=== PATIENT | female | born 1990 | race Caucasian/White ===

== ENCOUNTER 2017-12-09 21:31 | Inpatient (IN) | payer OTHER ==
[2017-12-09 22:52] LABS: APPEARANCE,URINE CLOUDY; BILIRUBIN,URINE NEGATIVE (NEGATIVE); COLOR,URINE YELLOW; GLUCOSE, URINE NEGATIVE (NEGATIVE); KETONES,URINE NEGATIVE (NEGATIVE); LEUKOCYTE ESTERASE,URINE TRACE (NEGATIVE); NITRITE,URINE NEGATIVE (NEGATIVE); PROTEIN,URINE NEGATIVE (NEGATIVE); URINE SPECIFIC GRAVITY 1.011; UROBILINOGEN,URINE NEGATIVE mg/dL (<2.0)
[2017-12-09 23:07] LABS: URINE AMPHETAMINES SCREEN NEGATIVE; URINE BARBITURATES SCREEN NEGATIVE; URINE BENZODIAZEPINES SCREEN NEGATIVE; URINE COCAINE SCREEN NEGATIVE; URINE MARIJUANA (THC) SCREEN NEGATIVE; URINE METHADONE SCREEN NEGATIVE; URINE PHENCYCLIDINE SCREEN NEGATIVE
[2017-12-09] MEDS ORDERED: RINGERS SOLUTION,LACTATED 1,000 ML IV PRN (23:16)
[2017-12-09 23:43] LABS: ABSOLUTE LYMPHOCYTES (AUTO) 2.4 10^3/uL (0.5-4.7); ABSOLUTE MONOCYTES (AUTO) 0.7 10^3/uL (0.1-1.4); ABSOLUTE NEUT (AUTO) 11.6 10^3/uL (1.7-8.2); BASOPHILS % (AUTO) 0.2 % (0-2); EOSINOPHILS % (AUTO) 0.2 % (0-6); HEMATOCRIT 33.5 % (36.0-47.0); HEMOGLOBIN 11.4 g/dL (12.0-15.5); LYMPHOCYTES % (AUTO) 16.1 % (13-45); MEAN CORPUSCULAR HEMOGLOBIN 27.8 pg (27.0-33.4); MEAN CORPUSCULAR HGB CONC 33.9 g/dL (32.0-36.0); MEAN CORPUSCULAR VOLUME 82 fl (80-97); MONOCYTES % (AUTO) 4.8 % (3-13); PLATELET COUNT 186 10^3/uL (150-450); RED BLOOD COUNT 4.09 10^6/uL (3.72-5.28); RED CELL DISTRIBUTION WIDTH 13.7 % (11.5-14.0); SEGMENTED NEUTROPHILS % (AUTO) 78.7 % (42-78); TOTAL CELLS COUNTED % (AUTO) 100 %; WHITE BLOOD COUNT 14.7 10^3/uL (4.0-10.5)
[2017-12-10] MEDS ORDERED: ACETAMINOPHEN WITH CODEINE #3 TABLET PO PRN ×2 (00:31)
[2017-12-10] MEDS ORDERED: BENZOCAINE/MENTHOL AEROSOL SPRAY 56 ML TOP PRN (00:31)
[2017-12-10] MEDS ORDERED: MEASLES,MUMPS&RUBELLA VACC/PF 0.5 ML VIAL SUBCUT PRN (00:31)
[2017-12-10] MEDS ORDERED: ZOLPIDEM TARTRATE 5 MG TABLET PO PRN (00:31)
[2017-12-10] MEDS ORDERED: DIPH/PERTUSS(ACELL)/TETANUS VAC/PF 0.5 ML SYR (>=10YO) IM PRN (00:31)
[2017-12-10] MEDS ORDERED: OXYTOCIN/NORMAL SALINE 20 UNIT/1,000 ML RTUINJ IV PRN (00:31)
[2017-12-10] MEDS ORDERED: DIBUCAINE 1% OINTMENT 28 GM TP PRN (00:31)
[2017-12-10] MEDS ORDERED: FENTANYL CITRATE INJ/PF 100 MCG/2 ML AMPUL ONE (01:32)
[2017-12-10] MEDS ORDERED: MISOPROSTOL 0.2 MG TABLET ONE (01:32)
[2017-12-10] MEDS ORDERED: OXYTOCIN/NORMAL SALINE 20 UNIT/1,000 ML RTUINJ ONE (01:33)
[2017-12-10] MEDS ORDERED: FENTANYL/BUPIVACAINE/NS/PF 300 MCG/150 ML RTUINJ EPI ONE (01:33)
[2017-12-10] MEDS ORDERED: BUPIVACAINE HCL 0.5 % INJ/PF 30 ML SDV ONE (01:33)
--- NOTE | 2017-12-10 02:11 | HISTORY AND PHYSICAL E ---
History and Physical NAME: CHI RITCHIE : 1990 AGE: 26Y ADMITTED: 12/09/2017 ROOM: LR200 HISTORY OF PRESENT ILLNESS: The patient is a 26-year-old G2, P1-0-0-1 at 40 weeks and 1 day gestational age upon admission. Presents with chief complaint of contractions every 4 to 5 minutes. Denies any vaginal bleeding or leakage of fluid. Reports good movement. Upon presentation, her vaginal exam was initially 4 cm dilated, but progressed to 5 cm dilation, and then further after her admission progressed to 8 cm. PAST OBSTETRICAL HISTORY: G1, normal spontaneous vaginal delivery full-term at 40 weeks and 3 days gestational age. PAST MEDICAL HISTORY: None. PAST SURGICAL HISTORY: Laparoscopic appendectomy in 2007. MEDICATIONS: vitamins, vitamin B6. ALLERGIES: No known drug allergies. SOCIAL HISTORY: Denies any smoking, drinking, or illicit drug use. OBJECTIVE: VITAL SIGNS: Stable, afebrile, normotensive, not tachycardic. GENERAL: Awake, alert, oriented x3. CARDIAC: Regular rate and rhythm. LUNGS: Clear to auscultation bilaterally. ABDOMEN: Gravid. EXTREMITIES: Deep tendon reflexes 1+. No clonus, cyanosis, or edema. 2+ pulses bilaterally. VAGINAL: Per nursing staff, 8, 90, and 0 station currently. The patient is getting an epidural at this moment. LABORATORY: CBC depicts a white blood cell count of 14.7, hemoglobin and hematocrit of 11.4 and 33.5 respectively, platelet count of 186. Urine is negative for urinary tract infection. Urine drug screen is negative. ASSESSMENT AND PLAN: The patient is a 26-year-old G2, P1-0-0-1 at 40 weeks and 1 day gestational age, with labor. 1. Admit to labor and delivery. 2. Anesthesia being obtained. 3. Once epidural is obtained, will go ahead and artificially rupture her membranes and anticipate vaginal delivery. DICTATING PHYSICIAN: Nirmala Bazan MD [id number] PHY#: [id number] ID: [id number] JOB#: [id number] ACCT: [id number] cc:Nirmala Bazan >
--- NOTE | 2017-12-10 02:11 | OPERATIVE REPORT E ---
Operative Report NAME: CHI RITCHIE : 1990 AGE: 26Y DATE OF SURGERY: 12/10/2017 ROOM: LR200 The patient is a 26-year-old G2, P2-0-0-2, day 0, now status post normal spontaneous vaginal delivery of a viable female with Apgars 8 and 8. She had an EBL of 550 due to uterine atony. Cytotec 1000 mcg per rectum was inserted. 3-0 Vicryl was used to repair posterior fourchette midline first degree laceration in a running continuous fashion. Laceration was reapproximated perfectly. Once the Cytotec was inserted, the uterus became firm and the lochia has minimized to minimal bleeding right now. The patient tolerated the procedure well. Sponge, lap, and needle counts were correct x2. Placenta was inspected. Three-vessel cord. All lobes were present. Viable female infant with Apgars 8 and 8, and weight of 3290 grams. DICTATING PHYSICIAN: Nirmala Bazan MD [id number] PHY#: [id number] ID: [id number] JOB#: [id number] ACCT: [id number] cc:Nirmala Bazan >
[2017-12-10] MEDS: IBUPROFEN 800 MG TABLET PO SCH ×3 (05:36→21:15)
[2017-12-10] MEDS: SENNOSIDES/DOCUSATE 8.6-50 MG 1 EACH TABLET PO SCH (09:47)
[2017-12-10] MEDS: DOCUSATE SODIUM 100 MG CAPSULE PO SCH ×2 (09:47→17:52)
[2017-12-10] MEDS: PRENATAL VITAMIN W DHA CAPSULE PO SCH (09:47)
[2017-12-10] MEDS: FERROUS SULFATE 325 MG TABLET PO SCH ×2 (09:47→17:52)
[2017-12-11] MEDS: IBUPROFEN 800 MG TABLET PO SCH ×2 (06:45→13:12)
[2017-12-11 06:49] LABS: HEMOGLOBIN 10.3 g/dL (12.0-15.5); MEAN CORPUSCULAR HEMOGLOBIN 28.3 pg (27.0-33.4); MEAN CORPUSCULAR HGB CONC 34.3 g/dL (32.0-36.0); MEAN CORPUSCULAR VOLUME 83 fl (80-97); PLATELET COUNT 136 10^3/uL (150-450); RED BLOOD COUNT 3.63 10^6/uL (3.72-5.28); RED CELL DISTRIBUTION WIDTH 14.1 % (11.5-14.0); WHITE BLOOD COUNT 9.4 10^3/uL (4.0-10.5)
[2017-12-11 08:20] VITALS: BP 109/67
[2017-12-11] MEDS: PRENATAL VITAMIN W DHA CAPSULE PO SCH (09:57)
[2017-12-11] MEDS: FERROUS SULFATE 325 MG TABLET PO SCH (09:57)
[2017-12-11] MEDS: SENNOSIDES/DOCUSATE 8.6-50 MG 1 EACH TABLET PO SCH (09:57)
[2017-12-11] MEDS: DOCUSATE SODIUM 100 MG CAPSULE PO SCH (09:57)
--- NOTE | 2017-12-11 13:06 | PDOC PROGRESS REPORT ---
Subjective-OB Progress Note for:: 12/11/17 Subjective: reports bleeding slowing, pain controlled with current meds, denies needs Physical Exam (OB) Vital Signs: Temp Pulse Resp BP Pulse Ox 97.7 F 62 15 109/67 98 12/11/17 07:58 12/11/17 07:58 12/11/17 07:58 12/11/17 07:58 12/11/17 07:58 Intake & Output 12/10/17 12/11/17 12/12/17 06:59 06:59 06:59 Intake Total 2500 Balance 2500 Weight 78.3 kg - Abdomen Description: Soft, Flat Hernia Present: No Fundal Description: Firm, Midline Fundal Height: u/u - u/2 - Abdominal Distension: No distension Tenderness: Nontender - Extremities Lower extremities: Avila's sign - neg Calf: Normal, Nontender Objective-Diagnostic Laboratory: 12/11/17 06:36 12/11/17 06:36 WBC 9.4 RBC 3.63 L Hgb 10.3 L Hct 30.0 L MCV 83 MCH 28.3 MCHC 34.3 RDW 14.1 H Plt Count 136 L Assessment and Plan(PN) - Assessment and Plan (1) Delivery normal Is this a current diagnosis for this admission?: Yes - Time Spent with Patient Time with patient: Less than 15 minutes Medications reviewed and adjusted accordingly: Yes - Disposition Anticipated Discharge: Home Within: within 24 hours
--- NOTE | 2017-12-11 16:46 | PDOC DISCHARGE SUMMARY ---
Final Diagnosis Discharge Date: 12/11/17 - Final Diagnosis (1) Delivery normal Is this a current diagnosis for this admission?: Yes Discharge Data - Discharge Medication Prescriptions: Ibuprofen [Motrin 800 mg Tablet] 800 mg PO Q8 #60 tablet Home Medications: Vit/Iron Fum/Folic AC [ Tablet] 1 each PO DAILY 12/27/15 Ibuprofen [Motrin 800 mg Tablet] 800 mg PO Q8 #60 tablet 12/11/17 Procedures: NST Intrapartum Procedure(s): Spontaneous Vaginal Delivery - Diagnosis Test Laboratory: Temp Pulse Resp BP Pulse Ox 97.7 F 62 15 109/67 98 12/11/17 16:17 12/11/17 16:17 12/11/17 16:17 12/11/17 07:58 12/11/17 16:17 12/09/17 12/09/17 12/11/17 22:00 23:28 06:36 RBC 4.09 3.63 L Hgb 11.4 L 10.3 L Hct 33.5 L 30.0 L Urine Opiates Screen NEGATIVE - Discharge information/Instructions Discharge Activity: Activity As Tolerated, Pelvic Rest Discharge Diet: Regular Disposition: HOME, SELF-CARE Follow up with: [facility] in: 4, Weeks
== END 2017-12-11 17:40 | disposition home or self-care (01) | DRG 807 ==
LOC: LC 21:31 → LR 23:07 → 2S 12-10 03:25
PROVIDERS: ADMIT Obstetrics & Gynecology; ATTEND Obstetrics & Gynecology
PROC: 10E0XZZ Delivery of Products of Conception, External Approach (ICD-10-PCS; principal; 2017-12-10)
PROC: 0HQ9XZZ Repair Perineum Skin, External Approach (ICD-10-PCS; 2017-12-10)
PROC: 4A1HXCZ Monitoring of Products of Conception, Cardiac Rate, External Approach (ICD-10-PCS; 2017-12-10)
DX: O70.0 First degree perineal laceration during delivery (principal); Z3A.40 40 weeks gestation of pregnancy; Z37.0 Single live birth
CPT/HCPCS: 36415; 80307; 81005; 85025; 85027; 86592; 86850; 86900; 86901; J2590; J3010; J3490

== ENCOUNTER 2019-08-08 21:38 | Inpatient (IN) | payer OTHER ==
[2019-08-08] MEDS ORDERED: RINGERS SOLUTION,LACTATED 1,000 ML IV ONE (21:53)
[2019-08-08] MEDS ORDERED: RINGERS SOLUTION,LACTATED 1,000 ML IV PRN (21:53)
[2019-08-08 22:10] LABS: APPEARANCE,URINE CLOUDY; BILIRUBIN,URINE NEGATIVE (NEGATIVE); COLOR,URINE YELLOW; GLUCOSE, URINE NEGATIVE (NEGATIVE); KETONES,URINE TRACE mg/dL (NEGATIVE); LEUKOCYTE ESTERASE,URINE NEGATIVE (NEGATIVE); NITRITE,URINE NEGATIVE (NEGATIVE); PROTEIN,URINE NEGATIVE (NEGATIVE); URINE SPECIFIC GRAVITY 1.004; UROBILINOGEN,URINE NEGATIVE mg/dL (<2.0)
[2019-08-08 22:26] LABS: ABSOLUTE EOSINOPHILS # (AUTO) 0.1 10^3/uL (0.0-0.6); ABSOLUTE LYMPHOCYTES (AUTO) 2.2 10^3/uL (0.5-4.7); ABSOLUTE MONOCYTES (AUTO) 0.6 10^3/uL (0.1-1.4); ABSOLUTE NEUT (AUTO) 8.2 10^3/uL (1.7-8.2); BASOPHILS % (AUTO) 0.3 % (0-2); EOSINOPHILS % (AUTO) 0.6 % (0-6); HEMATOCRIT 35.4 % (36.0-47.0); HEMOGLOBIN 11.8 g/dL (12.0-15.5); LYMPHOCYTES % (AUTO) 19.7 % (13-45); MEAN CORPUSCULAR HEMOGLOBIN 28.9 pg (27.0-33.4); MEAN CORPUSCULAR HGB CONC 33.3 g/dL (32.0-36.0); MEAN CORPUSCULAR VOLUME 87 fl (80-97); MONOCYTES % (AUTO) 5.7 % (3-13); PLATELET COUNT 173 10^3/uL (150-450); RED BLOOD COUNT 4.09 10^6/uL (3.72-5.28); RED CELL DISTRIBUTION WIDTH 13.6 % (11.5-14.0); SEGMENTED NEUTROPHILS % (AUTO) 73.7 % (42-78); TOTAL CELLS COUNTED % (AUTO) 100 %; WHITE BLOOD COUNT 11.1 10^3/uL (4.0-10.5)
[2019-08-08] MEDS ORDERED: MISOPROSTOL 0.2 MG TABLET ONE (22:32)
[2019-08-08] MEDS ORDERED: LIDOCAINE 1% INJ-PF (10 MG/ML) 30 ML SDV ONE (22:32)
[2019-08-08] MEDS ORDERED: OXYTOCIN 10 UNIT/ML VIAL ONE (22:32)
[2019-08-08] MEDS ORDERED: OXYTOCIN/0.9 % SODIUM CHLORIDE 30 UNIT/500 ML RTUINJ ONE (22:32)
[2019-08-08 22:44] LABS: URINE AMPHETAMINES SCREEN NEGATIVE; URINE BARBITURATES SCREEN NEGATIVE; URINE BENZODIAZEPINES SCREEN NEGATIVE; URINE COCAINE SCREEN NEGATIVE; URINE MARIJUANA (THC) SCREEN NEGATIVE; URINE METHADONE SCREEN NEGATIVE; URINE PHENCYCLIDINE SCREEN NEGATIVE
[2019-08-08] MEDS ORDERED: BUPIVACAINE HCL 0.25 % INJ/PF (2.5 MG/1 ML) 30 ML VIAL ONE (22:59)
[2019-08-08] MEDS ORDERED: EPHEDRINE SULFATE INJ 50 MG/1 ML AMPULE ONE (22:59)
[2019-08-08] MEDS ORDERED: FENTANYL/BUPIVACAINE/NS/PF 300 MCG/150 ML RTUINJ EPI ONE (22:59)
[2019-08-08] MEDS ORDERED: FENTANYL CITRATE INJ/PF 100 MCG/2 ML AMPUL ONE (23:14)
--- NOTE | 2019-08-08 23:16 | Admission Physical ---
Datetime Report Generated by CPN: 08/08/2019 23:16 CURRENT ADMISSION Chief Complaint: Uterine Contractions Indication for Induction: Not Applicable Admit Impression : Term, Intrauterine ; Active Labor; Intact Membranes Admit Plan: Admit to Unit; Initiate Labor Protocol ALLERGIES Medication Allergies: No Medication Allergies: No Known Allergies (08/08/2019) Latex: No Latex Allergies Food Allergies: NKA Environmental Allergies: NKA OBSTETRICAL HISTORY : 3 Para: 2 Term: 2 : 0 SAB: 0 IAB: 0 Ectopic: 0 Livin Cesareans: 0 VBACs: 0 Multiple Births: 0 Gestational Diabetes: No Rh Sensitization: No Incompetent Cervix: No EM: No Infertility: No ART Treatment: No Uterine Anomaly: No IUGR: No Hx Previous C/S: No Macrosomia: No Hx Loss/Stillborn: No PIH: No Hx : No Placenta Previa/Abruption: No Depression/PP Depression: No PTL/PROM: No Post Hemorrhage: Yes Current Procedures: Ultrasound Obstetrical History Comments: 2015 Methergine given for increased bleeding 2017 NVSD Cytotec given for increased bleeding SEE RECORDS Alcohol: No Marijuana : No Cocaine: No Other Illicit Drugs: No Cigarettes: Never Smoker. [id number] MEDICAL HISTORY Diabetes: No Blood Transfusion: No Pulmonary Disease (Asthma, TB): No Breast Disease: No Hypertension: No Preventive Maintenance Coordinator Surgery: No Heart Disease: No Hosp/Surgery: No Autoimmune Disorder: No Anesthetic Complications: No Kidney Disease: No Abnormal Pap Smear: No Neuro/Epilepsy: No Psychiatric Disorders: No Other Medical Diseases: No Hepatitis/Liver Disease: No Significant Family History: No Varicosities/Phlebitis: No Trauma/Violence : No Thyroid Dysfunction: No INFECTIOUS HISTORY Gonorrhea: No Genital Herpes: No Chlamydia: No Tuberculosis: No Syphilis: No Hepatitis: No HIV/AIDS Exposure: No Rash or Viral Illness: No HPV: No PHYSICAL EXAM General: Normal HEENT: Normal Neurologic: Normal Thyroid: Deferred Heart: Normal Lungs: Normal Breast: Deferred Back: Normal Abdomen: Normal Genitourinary Exam: Normal Extremities: Normal DTRs: Normal Pelvic Type: Adequate Vital Signs: Reviewed VAGINAL EXAM Dilatation: 6 Effacement: 80 Station: -2 Contraction Comments: q 2-4 MEMBRANES Membranes: Intact FETUS A Monitoring: External US FHR- Baseline: 130 Variability: Moderate 6-25bpm Accelerations: 15X15 Decelerations: None FHR Category: Category I Presentation: Vertex Admit Comment: 28yo at 38+4ega presents for active labor and uterine ctx. Cvx 6cm. GBS negative. passed 1 hr GTT. 3 hr GTT was normal. She has had a pph with both of her prior - resolved with methergine and cytotec. No need for transfusions per patient and records. She denies any other medical history. Admit to labor and delivery and anticipate . PLANS FOR LABOR AND DELIVERY Labor and Delivery: None Pain Management: Medications; Epidural Feeding Preference: Breast Benefit of Breast Feed Discussed: Yes INFORMED CONSENT Informed Consent Obtained: Vaginal Delivery; Risks, Benefits and Alternatives Discussed Signature: with User ID: [email or web address]
[2019-08-09] MEDS ORDERED: MEASLES,MUMPS&RUBELLA VACC/PF 0.5 ML VIAL SUBCUT PRN (01:54)
[2019-08-09] MEDS ORDERED: MAGNESIUM HYDROXIDE SUSP 30 ML UDCUP PO PRN (01:54)
[2019-08-09] MEDS ORDERED: PROMETHAZINE HCL 25 MG SUPP.RECT PR PRN (01:54)
[2019-08-09] MEDS ORDERED: OXYTOCIN/0.9 % SODIUM CHLORIDE 30 UNIT/500 ML RTUINJ IV PRN (01:54)
[2019-08-09] MEDS ORDERED: NA PHOS,M-B/NA PHOS,DI-BA (ADULT) 133 ML ENEMA PR PRN (01:54)
[2019-08-09] MEDS ORDERED: DIBUCAINE 1% OINTMENT 28 GM TP PRN (01:54)
[2019-08-09] MEDS ORDERED: BENZOCAINE/MENTHOL AEROSOL SPRAY 56 ML TOP PRN (01:54)
[2019-08-09] MEDS ORDERED: ACETAMINOPHEN WITH CODEINE #3 TABLET PO PRN ×2 (01:54)
[2019-08-09] MEDS ORDERED: GLYCERIN/WITCH HAZEL LEAF 1 EACH MED..WIPE TP PRN (01:54)
[2019-08-09] MEDS ORDERED: PROMETHAZINE HCL 25 MG TABLET PO PRN (01:54)
[2019-08-09] MEDS ORDERED: DIPH/PERTUSS(ACELL)/TETANUS VAC/PF 0.5 ML SYR (>=10YO) IM PRN (01:54)
[2019-08-09] MEDS ORDERED: DIPHENHYDRAMINE HCL 25 MG CAPSULE PO PRN (01:54)
[2019-08-09] MEDS ORDERED: ACETAMINOPHEN 325 MG TABLET PO PRN (01:54)
[2019-08-09] MEDS ORDERED: MISOPROSTOL 0.2 MG TABLET PR PRN (01:54)
[2019-08-09] MEDS ORDERED: ZOLPIDEM TARTRATE 5 MG TABLET PO PRN (01:54)
[2019-08-09] MEDS ORDERED: PROMETHAZINE HCL INJ 25 MG/1 ML VIAL IV PRN (01:54)
[2019-08-09] MEDS ORDERED: PSEUDOEPHEDRINE HCL 30 MG TABLET PO PRN (01:54)
[2019-08-09] MEDS ORDERED: IBUPROFEN 800 MG TABLET ONE (02:34)
--- NOTE | 2019-08-09 02:36 | Delivery Summary ---
Del Sum A-C Datetime Report Generated by CPN: 08/09/2019 02:36 DELIVERY PERSONNEL DELIVERY PERSONNEL: [id number] Delivery Doctor:: Layla Seals MD DNA SEQUENCING ASSOCIATE:: Yasmani Morales DNA SEQUENCING ASSOCIATE Labor and Delivery Nurse:: Dari Pugh RN Certified Ophthalmic Surgical Assistant/DIAZO TECHNICIAN: Lizzy Flower CST Additional Personnel: : Lizet Prado RN MATERNAL INFORMATION Delivery Anesthesia: Epidural Medications After Delivery: Pitocin Bolus-Please Comment; Cytotec 1000mcg Per Rectum/Vagina Meds After Delivery Comment: Pitocin 30 units/500 ml NSS Estimated Blood Loss (ml): 200 Maternal Complications: None Provider Comments: VMI delivered in [place] presentation. Nuchal/body/left foot cord. Shoulders and body delivered without difficulty. to maternal abdomen for NRP and skin to skin. Cord doubly clamped and cut after 2 minutes and stop pulsation. Placenta delivered intact spontaneously. crudee with no evidence of retained membranes/placenta. FF at U but due to h/o pph x 2 given cytotec IL. 1st degree perineal laceration repaired with good hemostasis. Mother and baby stable upon provider leaving the room. LABOR SUMMARY EDC: 08/18/2019 00:00 No. Babies in Womb: 1 Attempted: No Labor Anesthesia: Epidural LABOR INFORMATION Reason for Induction: Not Applicable Onset of Labor: 08/08/2019 21:51 Complete Dilatation: 08/09/2019 01:17 Oxytocin: N/A Group B Beta Strep: Negative Antibiotics # of Doses: 0 Steroids Given: None Reason Steroids Not Administered: Not Applicable MEMBRANES Membranes Rupture Method: Artificial Rupture of Membranes: 08/09/2019 00:35 Length of Rupture (hr): 0.98 Amniotic Fluid Color: Clear Amniotic Fluid Amount: Small Amniotic Fluid Odor: Normal STAGES OF LABOR Stage 1 hr: 3 Stage 1 min: 26 Stage 2 hr: 0 Stage 2 min: 17 Stage 3 hr: 0 Stage 3 min: 8 Total Time in Labor hr: 3 Total Time in Labor min: 51 VAGINAL DELIVERY Episiotomy: None Laceration #1: Perineal Laceration Extension #1: First Degree Laceration Repair: Yes Laceration Repair Note: 1st degree perineal laceration with good hemostasis after repair. Sponge Count Correct: Yes Sharps Count Correct: Yes CSECTION DELIVERY Primary Indication: N/A Secondary Indication: N/A CSection Incidence: N/A Labor: N/A Elective: N/A CSection Incision: N/A BABY A INFORMATION Infant Delivery Date/Time: 08/09/2019 01:34 Method of Delivery: Vaginal Nurse Controlled Delivery: No Born in Route : No : N/A Forceps: N/A Vacuum Extraction: N/A Shoulder Dystocia : No PRESENTATION/POSITION BABY A Presentation: Cephalic Cephalic Presentation: Vertex Vertex Position: Right Occipital Anterior Breech Presentation: N/A PLACENTA INFORMATION BABY A Placenta Delivery Time : 08/09/2019 01:42 Placenta Method of Delivery: Spontaneous Placenta Status: Delivered SCORES BABY A Heart Rate 1 min: >100 bpm Resp Effort 1 min: Good Cry Reflex Irritability 1 min: Cough or Sneeze or Pulls Away Muscle Tone 1 min: Active Motion Color 1 min: Body [place], Extremities Blue Resuscitation Effort 1 min: Tactile Stimulation SCORE 1 MIN: 9 Heart Rate 5 min: >100 bpm Resp Effort 5 min: Good Cry Reflex Irritability 5 min: Cough or Sneeze or Pulls Away Muscle Tone 5 min: Active Motion Color 5 min: Body [place], Extremities Blue Resuscitation Effort 5 min: Tactile Stimulation SCORE 5 MIN: 9 INFORMATION BABY A Gestational Age at Delivery: 38.5 Gestational Status: Early Term- 37- 38.6 Weeks Outcome : Liveborn Condition : Stable Infant Sex: Male IDENTIFICATION BABY A Infant Verification Date/Time: 08/09/2019 01:39 ID Band Number: [id number] Mother's Name Verified: Yes Infant RN Verifying Infant: , RN/Alejandro RN WEIGHT/LENGTH BABY A Birthweight (gm): 4171 Infant Weight (lb): 9 Infant Weight (oz): 3 Length (in): 21.75 Infant Length (cm): 55.25 CORD INFORMATION BABY A No. Cord Vessels: 3 Nuchal Cord- Other: Body, arm, and leg cord Cord Blood Taken: Yes-For Storage (Mom's Blood type +) Infant Suction: None BABY B INFORMATION : N/A SIGNATURES Signature: with User ID: [email or web address]
[2019-08-09] MEDS ORDERED: IBUPROFEN 800 MG TABLET PO SCH (06:00)
[2019-08-09] MEDS: FERROUS SULFATE 325 MG TABLET PO SCH ×2 (09:24→17:22)
[2019-08-09] MEDS: SENNOSIDES/DOCUSATE 8.6-50 MG 1 EACH TABLET PO SCH (09:24)
[2019-08-09] MEDS: PRENATAL VITAMIN W DHA CAPSULE PO SCH (09:24)
[2019-08-09] MEDS: IBUPROFEN 800 MG TABLET PO SCH ×2 (09:24→17:22)
[2019-08-09] MEDS: FAMOTIDINE 20 MG TABLET PO SCH (09:24)
[2019-08-09] MEDS: DOCUSATE SODIUM 100 MG CAPSULE PO SCH ×2 (09:24→17:22)
[2019-08-10] MEDS: FAMOTIDINE 20 MG TABLET PO SCH ×2 (01:03→10:04)
[2019-08-10] MEDS: IBUPROFEN 800 MG TABLET PO SCH ×3 (01:12→17:09)
[2019-08-10 06:38] LABS: HEMATOCRIT 33.1 % (36.0-47.0); HEMOGLOBIN 11.2 g/dL (12.0-15.5); MEAN CORPUSCULAR HEMOGLOBIN 29.4 pg (27.0-33.4); MEAN CORPUSCULAR HGB CONC 33.7 g/dL (32.0-36.0); MEAN CORPUSCULAR VOLUME 87 fl (80-97); PLATELET COUNT 131 10^3/uL (150-450); RED CELL DISTRIBUTION WIDTH 13.8 % (11.5-14.0); WHITE BLOOD COUNT 8.4 10^3/uL (4.0-10.5)
[2019-08-10 08:30] VITALS: BP 111/74
[2019-08-10] MEDS: PRENATAL VITAMIN W DHA CAPSULE PO SCH (10:00)
[2019-08-10] MEDS: FERROUS SULFATE 325 MG TABLET PO SCH ×2 (10:00→17:09)
[2019-08-10] MEDS: DOCUSATE SODIUM 100 MG CAPSULE PO SCH ×2 (10:00→17:09)
[2019-08-10] MEDS: SENNOSIDES/DOCUSATE 8.6-50 MG 1 EACH TABLET PO SCH (10:04)
--- NOTE | 2019-08-10 12:03 | PDOC DISCHARGE SUMMARY ---
Impression - Admit/DC Date/PCP Admission Date/Primary Care Provider: 08/08/19 22:00 MICHAEL SENIOR DO Discharge Date: 08/10/19 - Discharge Diagnosis (1) Active labor at term Is this a current diagnosis for this admission?: Yes (2) Obstetrical laceration, first degree Is this a current diagnosis for this admission?: Yes (3) Vaginal delivery Is this a current diagnosis for this admission?: Yes - Additional Information Discharge Diet: Regular Discharge Activity: Balance Activity w/Rest, Pelvic Rest Referrals: BRE SENIOR DO [Primary Care Provider] - Prescriptions: Ibuprofen [Motrin 800 mg Tablet] 800 mg PO Q8HP PRN #90 tablet PRN Reason: Home Medications: Vit/Iron Fum/Folic AC [ Tablet] 1 each PO DAILY 12/27/15 Ibuprofen [Motrin 800 mg Tablet] 800 mg PO Q8HP PRN #90 tablet 08/10/19 Results Laboratory Results: WBC 8.4 10^3/uL (4.0-10.5) 08/10/19 05:48 RBC 3.80 10^6/uL (3.72-5.28) 08/10/19 05:48 Hgb 11.2 g/dL (12.0-15.5) L 08/10/19 05:48 Hct 33.1 % (36.0-47.0) L 08/10/19 05:48 MCV 87 fl (80-97) 08/10/19 05:48 MCH 29.4 pg (27.0-33.4) 08/10/19 05:48 MCHC 33.7 g/dL (32.0-36.0) 08/10/19 05:48 RDW 13.8 % (11.5-14.0) 08/10/19 05:48 Plt Count 131 10^3/uL (150-450) L 08/10/19 05:48 Lymph % (Auto) 19.7 % (13-45) 08/08/19 22:07 Terry % (Auto) 5.7 % (3-13) 08/08/19 22:07 Eos % (Auto) 0.6 % (0-6) 08/08/19 22:07 Baso % (Auto) 0.3 % (0-2) 08/08/19 22:07 Absolute Neuts (auto) 8.2 10^3/uL (1.7-8.2) 08/08/19 22:07 Absolute Lymphs (auto) 2.2 10^3/uL (0.5-4.7) 08/08/19 22:07 Absolute Monos (auto) 0.6 10^3/uL (0.1-1.4) 08/08/19 22:07 Absolute Eos (auto) 0.1 10^3/uL (0.0-0.6) 08/08/19 22:07 Absolute Basos (auto) 0.0 10^3/uL (0.0-0.2) 08/08/19 22:07 Seg Neutrophils % 73.7 % (42-78) 08/08/19 22:07 Urine Color YELLOW 08/08/19 21:46 Urine Appearance CLOUDY 08/08/19 21:46 Urine pH 7.0 (5.0-9.0) 08/08/19 21:46 Ur Specific Hardy 1.004 08/08/19 21:46 Urine Protein NEGATIVE mg/dL (NEGATIVE) 08/08/19 21:46 Urine Glucose (UA) NEGATIVE mg/dL (NEGATIVE) 08/08/19 21:46 Urine Ketones TRACE mg/dL (NEGATIVE) H 08/08/19 21:46 Urine Blood NEGATIVE (NEGATIVE) 08/08/19 21:46 Urine Nitrite NEGATIVE (NEGATIVE) 08/08/19 21:46 Urine Bilirubin NEGATIVE (NEGATIVE) 08/08/19 21:46 Urine Urobilinogen NEGATIVE mg/dL (<2.0) 08/08/19 21:46 Ur Leukocyte Esterase NEGATIVE (NEGATIVE) 08/08/19 21:46 Urine Ascorbic Acid NEGATIVE (NEGATIVE) 08/08/19 21:46 Urine Opiates Screen NEGATIVE 08/08/19 21:46 Urine Methadone Screen NEGATIVE 08/08/19 21:46 Ur Barbiturates Screen NEGATIVE 08/08/19 21:46 Ur Phencyclidine Scrn NEGATIVE 08/08/19 21:46 Ur Amphetamines Screen NEGATIVE 08/08/19 21:46 U Benzodiazepines Scrn NEGATIVE 08/08/19 21:46 Urine Cocaine Screen NEGATIVE 08/08/19 21:46 U Marijuana (THC) Screen NEGATIVE 08/08/19 21:46 RPR NONREACTIVE (NONREACTIVE) 08/08/19 22:07 Blood Type A POSITIVE 08/08/19 22:07 Antibody Screen NEGATIVE 08/08/19 22:07 Plan Plan of Treatment: follow up in 4 weeks at [facility] for post check
== END 2019-08-10 17:55 | disposition home or self-care (01) | DRG 807 ==
LOC: LC 21:38 → LR 22:00 → 2S 08-09 04:42
PROVIDERS: ADMIT Student in an Organized Health Care Education/Training Program; ATTEND Student in an Organized Health Care Education/Training Program
PROC: 10E0XZZ Delivery of Products of Conception, External Approach (ICD-10-PCS; principal; 2019-08-09)
PROC: 0HQ9XZZ Repair Perineum Skin, External Approach (ICD-10-PCS; 2019-08-09)
DX: O69.81X0 Labor and delivery complicated by cord around neck, without compression, not applicable or unspecified (principal); Z37.0 Single live birth; O70.0 First degree perineal laceration during delivery; Z3A.38 38 weeks gestation of pregnancy
CPT/HCPCS: 1967; 36415; 80307; 81005; 85025; 85027; 86592; 86850; 86900; 86901; 94760; J2590; J3010; J3490